=== PATIENT | female | born 1945 | race Caucasian/White ===

== ENCOUNTER 2019-04-22 08:13 | Outpatient (CLI) | payer MEDICARE, SELFPAY ==
[2019-04-15 12:50] VITALS: BMI 28.5
[2019-04-22] VITALS (9 sets, daily range): BP systolic 119–150; BP diastolic 67–81; PULSE 76–92; RESP 20–24; O2SAT 92–98
--- NOTE | ~2019-04-22 | US_ITS ---
EXAMINATION: US biopsy liver DATE: 04/22/2019 12:19 INDICATION: Overlapping malignant neoplasm of colon. TECHNIQUE: The procedure including the risks, benefits, and alternatives was discussed with the patie nt. Risks discussed included bleeding and infection. The patient understood the risks and agreed to p roceed. The skin overlying the liver was prepped and draped in usual sterile fashion. Anesthetic was administered with 1% lidocaine subcutaneously. An 18 gauge core biopsy needle was then used to obta in 3 core biopsy specimens under continuous sonographic guidance. The entry site was cleaned and dres sed. There were no immediate complications. FINDINGS: Ultrasound images demonstrate the needle in a mass in right hepatic lobe. IMPRESSION: 1. Ultrasound-guided core needle biopsy of a mass in right hepatic lobe. Reviewed, dictated and finalized at location A. [employer]
[2019-04-22 09:25] LABS: Prothrombin Time 12.6 Seconds (11.1-14.7)
[2019-04-22 11:15] LABS: Mean Platelet Volume 11.3 fl (7.4-10.4); Platelet Count Result 141 k/mm3 (150-375)
--- NOTE | 2019-04-22 14:59 | SUR.PHASEII ---
1400 pt tolerating clear liquids
== END 2019-04-22 15:16 | disposition home or self-care (01) ==
PROVIDERS: Radiology Diagnostic Radiology; Visit Provider Internal Medicine Hematology & Oncology
DX: C18.8 Malignant neoplasm of overlapping sites of colon (principal)
CPT/HCPCS: 36415; 47000; 76942; 85049; 85610; 88307; 88342

== ENCOUNTER 2019-07-21 09:24 | Outpatient (CLI) | payer MEDICARE, SELFPAY ==
--- NOTE | ~2019-07-21 | CT_ITS ---
EXAMINATION: CT chest abdomen pelvis w con EXAM DATE: 07/21/2019 11:00 INDICATION: Colorectal cancer. TECHNIQUE: Spiral CT of the chest, abdomen and pelvis was performed following intravenous injection o f 100 mL Omnipaque 350. Axial, coronal and sagittal images were reviewed. Coronal maximum intensity pixel images of chest reviewed. The dose-length product (DLP) for this examination was 471.14 mGy-c m. The exposure was tailored according to patient size (auto mA exposure control), and iterative rec onstruction (ASIR) was used as additional dose reduction technique. Correlation is made to head CT . FINDINGS: CHEST: Increase in both number and size of pulmonary metastases, with approximately 40 nodules ident ified. For example a right upper lobe anterior segmental pleural-based nodule measures 1.8 cm today, was 0.8 cm in March. A left lung base nodule measures 2.4 cm today, was 0.6 cm. There is a right-si ded Chemo-Port. There are no pleural or pericardial effusions. Tracheobronchial tree is patent. There is no mediastinal, hilar or axillary lymphadenopathy. There is no pneumothorax. Heart jennifer l in size. There is mild coronary arterial calcification, arterial sclerosis. ABDOMEN PELVIS: Previously described liver metastatic lesions do not appear significantly changed in size, although they are lower in density than on prior study, may indicate some increase in necrosis. There is nodularity to the left adrenal gland unchanged, adenomas versus metastatic disease. Smaller nodules in the right adrenal gland. Spleen and pancreas are unremarkable. Gallbladder is unremarkab le. No biliary obstruction. Portal and splenic veins are patent. Kidneys enhance symmetrically. T here is no hydronephrosis. The uterus is unremarkable. There is a right renal cyst measuring 6 cm. The bladder is unremarkable. There is no retroperitoneal or pelvic lymphadenopathy. There is mild scattered arteriosclerotic disease. Surgical changes consistent with right hemicolectomy. There is mild to moderate sigmoid colonic diver ticulosis. There is no adjacent inflammatory change to suggest diverticulitis. There is expected roverto unt of colonic stool. No free intraperitoneal gas. There are no osteoblastic or osteolytic lesion s identified. IMPRESSION: 1. Increase in size and number of pulmonary metastatic lesions. 2. Liver metastatic lesions, size unchanged but decreased density could indicate some necrosis from treatment. 3. Indeterminate adrenal lesions unchanged. Reviewed, dictated and finalized at location A. IMPRESSION: 1. Increase in size and number of pulmonary metastatic lesions. 2. Liver metastatic lesions, size unchanged but decreased density could indica te some necrosis from treatment. 3. Indeterminate adrenal lesions unchanged.
[2019-07-21 10:28] LABS: Basophils Percent Auto 0.3 % (0.2-1.2); Eosinophils Percent Auto 0.5 % (0-4.4); Hematocrit 23.1 % (37.0-47.0); Hemoglobin 7.5 g/dL (12.0-15.0); Immature Granulocyte Absolute 0.04 K/mm3 (0.00-0.031); Immature Granulocyte Percent A 1.1 % (0-0.5); Lymphocytes Absolute Auto 0.52 K/mm3 (0.9-3.2); Lymphocytes Percent Auto 14.2 % (18.3-44.2); Mean Corpuscular HGB Conc 32.5 g/dl (32-36); Mean Corpuscular Hemoglobin 28.4 pg (26-34); Mean Corpuscular Volume 87.5 fl (80-100); Mean Platelet Volume 10.9 fl (7.4-10.4); Monocytes Absolute Auto 0.2 K/mm3 (0.1-0.6); Monocytes Percent Auto 5.4 % (2.6-8.5); Neutrophils Absolute Auto 2.9 K/mm3 (1.3-6.7); Neutrophils Percent Auto 78.5 % (45.5-73.1); Platelet Count Result 135 k/mm3 (150-375); Red Blood Count 2.64 M/mm3 (4.2-5.4); Red Cell Distribution Width 23.7 % (11.5-14.5); White Blood Count 3.7 K/mm3 (4.5-10.0)
[2019-07-21 10:38] LABS: INR 3.4; Prothrombin Time 33.9 Seconds (11.1-14.7)
[2019-07-21 10:39] LABS: Alanine Aminotransferase 45 U/L (4-35); Alkaline Phosphatase 102 U/L (38-126); Aspartate Amino Transferase 51 U/L (14-36); Blood Urea Nitrogen 19 mg/dL (7-17); Calcium 8.2 mg/dL (8.4-10.2); Carbon Dioxide 22 mmol/L (22-30); Chloride 109 mmol/L (98-107); Estimated Glomerular Filt Rate 44; Glucose 104 mg/dL (65-105); Potassium 3.9 mmol/L (3.4-5.0); Sodium 135 mmol/L (137-145)
[2019-07-21 11:10] LABS: Carcinoembryonic Antigen 46.3 ng/mL (0.0-3.0)
== END 2019-07-21 09:25 | disposition home or self-care (01) ==
PROVIDERS: PCP Family Medicine; Visit Provider Internal Medicine Hematology & Oncology
DX: C18.0 Malignant neoplasm of cecum (principal); D49.0 Neoplasm of unspecified behavior of digestive system; C78.02 Secondary malignant neoplasm of left lung; C78.01 Secondary malignant neoplasm of right lung; C78.7 Secondary malignant neoplasm of liver and intrahepatic bile duct; E27.9 Disorder of adrenal gland, unspecified
CPT/HCPCS: 36415; 71260; 74177; 80053; 82378; 85025; 85610; Q9967